=== PATIENT | male | born 2000 | race Caucasian/White ===

== ENCOUNTER 2022-01-10 11:31 | Emergency (ER) | payer BC, MEDICAID, SELFPAY ==
--- NOTE | 2022-01-10 11:43 | HMH.EDUTC ---
[facility] [place] Disposition Clinical Impression: Gastroparesis Abdominal pain Qualifiers: Abdominal location: unspecified location Qualified Code(s): R10.9 - Unspecified abdominal pain Disposition: Home, Self-Care Condition on Discharge: Good Instructions: DI for Gastroparesis, Gastroparesis, Metoclopramide Additional Instructions: Drink plenty of fluids. Take tylenol or ibuprofen for pain or fever. Take the medications as directed. Follow up with your regular doctor. GO TO THE ER FOR ANY WORSENING SYMPTOMS Take the metocloprimide (reglan) 1 hour before you eat. It should help your symptoms at least some. Make sure your follow up with the GI specialist as scheduled. You could call them and see if they could see you sooner. Prescriptions: Metoclopramide HCl [Reglan 10mg Tab] 10 mg PO BIDP PRN #30 tab PRN Reason: Nausea Transmission Status: Received by [facility]ERR[facility] [id number] Referrals: Ileana Morrow [Primary Care Provider] - Forms: Work/School Release Time of Disposition: 12:43 Medical Decision Making - Medical Records Medical records reviewed: No: I reviewed the patient's medical records. - [place] Inquiry Pt receiving controlled substance: No Vital Signs: 01/10/22 11:47 01/10/22 12:54 Temperature 98.4 F 98.4 F Temperature Source Oral Pulse Rate 81 Pulse Rate [Left Radial] 81 Respiratory Rate 18 18 Blood Pressure 139/78 Blood Pressure [Right Arm] 139/78 Blood Pressure Mean [Right Arm] 98 02 Sat by Pulse Oximetry 96 [facility] [place] HPI - General Stated complaint: abd pains Time Seen by Provider: 01/10/22 12:17 - History of Present Illness Provider Complaint: He states that he has a long history of gi issues. He is follow by a steel chipper at , but he has not been seen there since last year. He has abdominal pain after eating. He cannot identify any foods that make it worse. - Related Data Previous Rx's Medication Instructions Recorded Metoclopramide HCl [Reglan 10mg 10 mg PO BIDP PRN #30 tab 01/10/22 Tab] [facility] History - Hepatitis A Screen Attestation statement:: This patient has been screened for Hepatitis A risk factors. I have reviewed the patient's past medical history: Yes ROS Obtained: Yes All systems reviewed & no additional complaints - Constitutional Constitutional: Denies chills, Denies fever(s) - Eyes Eyes: Denies eye discharge - ENT Ears, Nose, Mouth, and Throat: Denies dizziness, Denies otalgia, Denies sore throat - Cardiovascular Cardiovascular: Denies chest pain - Respiratory Respiratory: Denies chest congestion, Denies cough - Gastrointestinal Gastrointestingal: Reports: abdominal pain, cramping, nausea, vomiting. Denies: diarrhea Physical Exam - General General appearance: alert, in no apparent distress - Head Head exam: atraumatic, normocephalic, normal inspection - Eye Eye exam: Present: normal appearance, PERRL, EOMI - ENT ENT exam: Present: normal exam, normal oropharynx, mucous membranes moist, TM's normal bilaterally, normal external ear exam - Neck Neck exam: Present: normal inspection, full ROM, trachea midline. Absent: meningismus, lymphadenopathy - Chest Chest inspection: Present: normal inspection, symmetric chest wall rise. Absent: tenderness - Respiratory Respiratory exam: Present: normal lung sounds bilaterally. Absent: respiratory distress - Cardiovascular Cardiovascular exam: Present: regular rate, normal rhythm. Absent: JVD - Abdominal Exam Abdominal exam: Present: soft, hyperactive bowel sounds. Absent: distention, tenderness, guarding, rebound, rigidity, psoas sign, obturator sign, heel tap sign, Brooks's sign, Rovsing's sign, tenderness at McBurney's Point - Extremities Exam Extremities exam: Present: normal inspection, full ROM, normal capillary refill. Absent: calf tenderness - Back Exam Back exam: Present: normal inspection. Absent: tenderness - Neurological Ex
[2022-01-10 11:47] VITALS: BP 139/78; PULSE 81; RESP 18; TEMP 36.9; O2SAT 96; BMI 28.0
[2022-01-10 12:54] VITALS: BP 139/78; PULSE 81; RESP 18; TEMP 36.9
== END 2022-01-10 12:55 | disposition home or self-care (01) ==
PROVIDERS: Emergency Provider Nurse Practitioner Family; PCP Pediatrics
DX: K31.84 Gastroparesis (principal)
CPT/HCPCS: 99212; G0463